=== PATIENT | female | born 1955 | race Caucasian/White ===

== ENCOUNTER 2016-10-25 02:25 | Inpatient (IN) | payer OTHER ==
[~2016-10-25] VITALS: Ht 172.7 cm; Wt 99.8 kg
[~2016-10-25 02:25] MED LIST: ATORVASTATIN CA20 M1 PO; CHLORTHALIDONE50 M1 PO; ESCITALOPRAM OX20 MG PO; GABAPENTIN300 M2 PO; METOPROLOL SUCC50 M2 PO; [UNRECOGNIZED DRUG - OTHER]
--- NOTE | 2016-10-25 11:26 | Admission Core Measures ---
Admission Meds I reviewed the following Meds: Current Medications Sig/Zuly Start time Last Medication Dose Stop Time Status Admin Acetaminophen 975 MG ONCE 10/25 0000 NR (Tylenol) 10/25 2358 Atorvastatin Calcium 20 MG DAILY 10/26 1000 UNVr (Lipitor) Cefazolin Sodium 2,000 MG ONCE 10/25 NR (Kefzol-Ancef Inj) 10/25 2358 Chlorthalidone 50 MG DAILY 10/26 1000 UNVr (Hygroton) Escitalopram Oxalate 10 MG 10/25 UNVr (Lexapro) Metoprolol Succinate 50 MG .[NIGHTLY] 10/25 1130 UNVr (Toprol XL) Oxycodone HCl 10 MG ONCE 10/25 NR (Roxicodone) 10/25 2358 Ropivacaine 500 ML Q40H ONE 10/25 1115 AC (NAROPIN) 10/27 0454 ON-Q Ball 1 BAG Vancomycin HCl 1,500 MG ONCE ONE 10/25 1045 AC Sodium Chloride 250 ML 10/25 1214 (Normal Saline 0.9%) Acute Coronary Syndrome Inclusion Criteria ACS Diagnosis No Inpatient Core Measures LDL Reminder: If No, please order W/I first 24hr of stay Congestive Heart Failure Inclusion Criteria CHF Diagnosis No Cerebrovascular accident Inclusion Criteria CVA/TIA Diagnosis No Inpatient Core Measures Bedside Swallow Eval Reminder: If BSE failed, place ST order Antithrombotic Reminder: Order Antithrombotic Medication by end of day 2 Antithrombotic Reminder: Document Reason Antithrombotic Not ordered by end of day 2 AFIB/Flutter Reminder: If Present, add to problem list AFIB/Flutter Reminder: Order Anticoag Medication for pts with AFIB/Flutter Atherosclerosis Reminder: If Present, add to problem list LDL Reminder: If No, please order W/I first 24hr of stay PT Order Reminder: If No, please order Venous thromboembolism Inpatient Core Measures VTE Risk Factors: Age > 40, Surgery No [facility] VTE prophylaxis d/t No contraindications No VTE Pharm Prophylaxis d/t No contraindications Inclusion Criteria - Per Current guidelines, there needs to be overlap - treatment for the first 5 days of Warfarin therapy. - Parenteral Anticoagulation (IV or SC) needs to be - given along with Warfarin therapy. VTE Diagnosis No VTE Type NONE VTE Confirmed by (Test) NONE Problem List As ranked by this Provider includes Assessment & Plan 1. S/P total knee replacement HOME MEDS Home Med List Atorvastatin Calcium 20 MG TABLET 1 TAB PO DAILY CHOLESTEROL (Reported) Chlorthalidone 50 MG TABLET 1 TAB PO DAILY HTN (Reported) Escitalopram Oxalate 20 MG TABLET 1 TAB PO NIGHTLY ANXIETY / DEPRESSION ( Reported) Gabapentin 300 MG CAPSULE 1 CAP PO NIGHTLY PAIN (Reported) Metoprolol Succinate 50 MG TAB.ER.24H 1 TAB PO NIGHTLY HTN (Reported)
--- NOTE | 2016-10-25 11:29 | Surg Short-stay <48hrs Dis Sum ---
Visit Information Visit Dates Admission Date: 10/25/16 Discharge Date: 10/27/16 Surgical Short Stay DC Summary Admission Diagnosis: Knee pain Final Diagnosis: s/p R TKR Procedure(s): R TKR - see opertive report Summary/Significant Findings: pt underwent a right total knee replacement on 10/[address] Mcfadden. She tolerated the procedure well and was brought to the PACU in stable condition. Post op she was able to void spontaneously, her pain was controlled with oral medication and she worked with PT. She was cleared for discharge to home with services. Condition at Discharge: good Discharge Disposition: home health services Discharge instructions provided to patient/family: Yes Post discharge follow-up plan: Scheduled appointment in [address] Mcfadden. Call sooner if needed.
--- NOTE | 2016-10-25 11:31 | Patient Discharge Instructions ---
Discharge Instructions General Discharge Information You were seen/treated for: Knee pain You had these procedures: Total knee replacement Watch for these problems: temp>101, increased redness or drainage of wound No bath, but you may shower: Yes Other wound care: Keep incisions clean and dry. May shower, no bathing or soaking. Diet Continue normal diet: Yes Activity Activity Self Limited: Yes Activity Limited to: Weight bear as tolerated Acute Coronary Syndrome Inclusion Criteria At DC or during hospital stay patient has or had the following: ACS DIAGNOSIS No Discharge Core Measures Meds if any: Prescribed or Continued at Discharge Meds if any: NOT Prescribed or Continued at Discharge Congestive Heart Failure Inclusion Criteria At DC or during hospital stay patient has or had the following: CHF DIAGNOSIS No Discharge Core Measures Meds if any: Prescribed or Continued at Discharge Meds if any: NOT Prescribed or Continued at Discharge Cerebrovascular accident Inclusion Criteria At DC or during hospital stay patient has or had the following: CVA/TIA Diagnosis No Discharge Core Measures Meds if any: Prescribed or Continued at Discharge Meds if any: NOT Prescribed or Continued at Discharge Venous thromboembolism Inclusion Criteria VTE Diagnosis No VTE Type NONE VTE Confirmed by (Test) NONE Discharge Core Measures - Per Current guidelines, there needs to be overlap - treatment for the first 5 days of Warfarin therapy. - If discharged on Warfarin prior to 5 days of - overlap therapy, the patient will need to be - assessed for post discharge needs including - *Post discharge parental anticoagulation - *Warfarin and/or parental anticoagulation education - *Follow up date to check INR post discharge At least 5 days overlap therapy as Inpatient No Meds if any: Prescribed or Continued at Discharge Note: Overlap Therapy is Warfarin and Anticoagulant Meds if any: NOT Prescribed or Continued at Discharge
[2016-10-25] MEDS ORDERED: ASPIRIN EC325 M2 PO (12:31)
[2016-10-25] MEDS ORDERED: OMEPRAZOLE20 M2 PO (12:31)
[2016-10-25] MEDS ORDERED: COLACE100 M1 PO (12:31)
[2016-10-25] MEDS ORDERED: DILAUDID4 M1 PO (12:31)
[2016-10-25] MEDS ORDERED: MS CONTIN15 M2 PO (12:31)
[2016-10-25] MEDS ORDERED: MIRALAX17 G1 PO (12:31)
--- NOTE | 2016-10-25 16:56 | PN- Orthopedic ---
Subjective Subjective: The patient was seen this evening postoperatively. She reports that her pain is under adequate control and has no other complaints at the current time. Objective Vital Signs and I&Os Vital signs: Blood pressure 180/70, pulse 65, temperature 97.3, O2 saturation 99 % on 2 L via nasal cannula I's and O's: 2500 ML's in of lactated Ringer's/660 ML's out of urine/EBL less than 150 Physical Exam: Gen.: Alert and in no obvious distress Skin: Warm and dry Cardiac: S1-S2 regular Pulmonary: Bilateral breath sounds were equal and decreased at bases Extremities: Bilateral lower extremities were warm without calf tenderness. Gross motor and sensory were intact. Right knee surgical dressing was clean, dry, and intact. There is an On-Q pain pump in place. Assessment/Plan Assessment/Plan Assessment: 61-year-old female status post right total knee arthroplasty. Postoperatively the patient is progressing as expected and her pain is under adequate control. Plan: Out of bed with physical therapy patient is weightbearing as tolerated Continue current pain regiment Gentle hydration and advance diet as tolerated Follow-up morning laboratory studies GI and DVT prophylaxis beginning tonight with 325 mg of aspirin by mouth twice a day Resume home medications 2 doses of postoperative prophylactic antibiotics Strict I's and O's Core Measures/Miscellaneous Venous Thromboembolism VTE Risk Factors: Age > 40, Surgery VTE Contraindications: No Contraindications VTE Diagnosis: No VTE Type: NONE VTE Confirmed by (Test): NONE Beta Mike Is Beta Mike a Home Med? Yes If Yes, Was This Ordered Today? Yes Antibiotics Is Patient on Antibiotics? Yes If Yes: prophylaxis
[2016-10-25 17:30] VITALS: BP 140/70
--- NOTE | 2016-10-25 18:16 | NUR ---
PT ARRIVED TO FLOOR AT 1700 FROM PACU A/O X 3, ON 2L NC, VSS, DENIES PAIN OR DISCOMFORT. DRESSING TO RIGHT KNEE CD+I, +CMS, ICE PACK IN PLACE. ALPS APPLIED. SKIN INTACT. LUNGS CLEAR. +BS X 4. DENIES NAUSEA. TAKING IN WATER AND ICE CHIPS/ DINNER ORDER PLACED. ORIENTED TO ROOM AND CALL ROWELL USE. YBARRA DRAINING CLEAR YELLOW URINE. ONQ PUMP TO RIGHT KNEE INTACT. IVF INFUSING. WILL MONITOR
[2016-10-25 19:27] VITALS: BP 130/70
--- NOTE | 2016-10-25 19:30 | Operative Report ---
Operative/Inv Procedure Report Surgery Date: 10/25/16 Name of Procedure: 1. Right total knee replacement 2. Left knee cortisone injection Pre-Operative Diagnosis: Bilateral primary knee DJD Post-Operative Diagnosis: Same Estimated Blood Loss: 50ml to 100ml Surgeon/Certified Phlebotomy Technician: CATERINA VILLEGAS,SHANI Fernandez Anesthesia: block Operative/Procedure Note Note: Description of Procedure: The patient was taken to the operating room and positively identified. After induction of spinal anesthesia and administration of appropriate pre-operative antibiotics, the patient was positioned supine on the operating room table and all bony prominences were well padded. The left knee was prepped sterilely and injected with a mixture of 2 mL of Depo- Medrol and 8 mL of half percent Marcaine. A Band-Aid was placed over the injection site. A well-padded pneumatic tourniquet was placed on the right upper thigh. After performing a surgical timeout, the right lower extremity was prepped and draped in the usual sterile fashion. After exsanguination with Esmarch the tourniquet was inflated to 250mm of mercury. A standard medial parapatellar approach was made to the knee. This was carried down through skin and subcutaneous tissue to the level of the fascia. Meticulous hemostasis was maintained with Bovie electrocautery. The extensor mechanism and patellar retinaculum were opened sharply and the patella was everted. The infrapatellar fat was resected in order to improve exposure. Osteophytes were trimmed from the patella and femoral condyles and the patella was re-everted and tucked laterally. A medial release was performed and the cruciate ligaments were resected. The tibia was then subluxed anteriorly. Utilizing the appropriate extra-medullary guide, the proximal tibia was trimmed perpendicular to the long axis of the tibial shaft. Attention was then turned to the femur. After opening the medullary canal, the distal femoral cut was made in 6 degrees of valgus utilizing the appropriate intra-medullary guide. The extension gap was checked and found to be appropriate. The femur was then sized and the remainder of the femoral cuts were made with a size 4 4-in-1 femoral cutting guide. The flexion gap was checked and found to be symmetric and appropriate. The knee was then trialed with a size 4 femoral component, a size 4 tibial component and a size 11 mm polyethylene insert. The patella was trimmed to accept an A 35 patella. This yielded excellent range of motion, stability and patellar tracking. All trial components were removed and the knee was copiously irrigated with sterile saline. All components were cemented into place with Zwingle Simplex cement. All the components were of the Alicia Triathlon knee system of the above stated sizes. The knee was again irrigated after cementation. The extensor mechanism and patellar retinaculum were repaired using interrupted #1 vicryl suture. The skin was re-approximated with 2-0 vicryl and closed with bethanie. A sterile dressing was applied, the tourniquet was deflated, the patient was awakened and taken to the recovery room in satisfactory condition.
[2016-10-25 21:45] VITALS: BP 130/60
[2016-10-26 00:13] VITALS: BP 116/60
[2016-10-26 04:14] VITALS: BP 120/76
--- NOTE | 2016-10-26 07:59 | PN- Orthopedic ---
Subjective Subjective: Doing well, states pain is well controlled with dilaudid. Denies c/p, sob, difficulty breathing. Denies nausea and vomitting. Is ambulating with PT this am Objective Vital Signs and I&Os Vital Signs Date Time Temp Pulse Resp B/P B/P Pulse O2 O2 Flow FiO2 Mean Ox Delivery Rate 10/26 0414 98.1 53 20 120/76 97 Nasal 1.0L Cannula 10/26 0013 98.0 57 20 116/60 96 Nasal 1.0L Cannula 10/26 0000 96 Nasal 1.0L Cannula 10/25 2145 98.9 63 20 130/60 96 Nasal 1.0L Cannula 10/25 2106 132/70 10/25 1927 98.1 57 20 130/70 96 Nasal 2.0L Cannula 10/25 1730 95.4 61 12 140/70 96 Nasal 2.0L Cannula 10/25 1600 Nasal 2.0L Cannula Intake & Output 10/26 0800 10/26 0000 10/25 1600 10/25 0800 10/25 0000 10/24 1600 Intake Total 800 600 Output Total 1000 900 Balance -200 -300 Intake, IV 600 600 Intake, Oral 200 Number 0 Bowel Movements Output, Urine 1000 900 Patient 220 lb Weight Physical Exam: General: AAO x3, no acute distress Cardiac: RRR, s1s2 Pulm: CTA bilaterally Abd: Non-tender, non-distended Extremties: Moves all extremties, distal sensation intact. Skin warm and well perfused. DP pulses palpable. Calves soft and non-tender bilaterally Surgical site: D ressing dry and intact, onQ in place Assessment/Plan Assessment/Plan This is a 61 year old female, POD 1, s/p TKR -Continue current pain regimen -DC iv fluids -OOB, wbat -F/U am labs -ASA bid for dvt ppx Core Measures/Miscellaneous Venous Thromboembolism VTE Risk Factors: Age > 40, Surgery VTE Contraindications: No Contraindications VTE Diagnosis: No VTE Type: NONE VTE Confirmed by (Test): NONE Beta Mike Is Beta Mike a Home Med? Yes If Yes, Was This Ordered Today? Yes Antibiotics Is Patient on Antibiotics? Yes If Yes: prophylaxis
[2016-10-26 09:09] LABS: ABSOLUTE BASOPHIL COUNT 0 /CUMM (0.0-0.2); ABSOLUTE EOSINOPHIL COUNT 0 /CUMM (0.0-0.7); ABSOLUTE GRANULOCYTE CT 13.5 /CUMM (1.4-6.5); ABSOLUTE LYMPH COUNT 0.5 /CUMM (1.2-3.4); ABSOLUTE MONOCYTE COUNT 0.4 /CUMM (0.10-0.60); BASOPHIL % 0 % (0.0-2.0); EOSINOPHIL % 0 % (0-5); GRANULOCYTE % 93.3 % (42.2-75.2); HEMATOCRIT 28.1 % (37-47); MEAN CORPUSCULAR HGB 29.9 PG (27.0-31.0); MEAN CORPUSCULAR HGB CONC 34.2 G/DL (33.0-37.0); MEAN CORPUSCULAR VOLUME 87.4 FL (81.0-99.0); MEAN PLATELET VOLUME 8.9 FL (7.4-10.4); PLATELET COUNT 183 /CUMM (130-400); RBC DISTRIBUTION WIDTH 13.2 % (11.5-14.5); RED BLOOD CELL CT 3.21 /CUMM (4.20-5.40); WHITE BLOOD CELL COUNT 14.4 /CUMM (4.8-10.8)
[2016-10-26 14:29] VITALS: BP 118/52
[2016-10-26 22:23] VITALS: BP 130/70
[2016-10-27 06:30] VITALS: BP 118/70
--- NOTE | 2016-10-27 07:10 | PN- Orthopedic ---
Subjective Subjective: POD#2 S/P RIGHT TKA NO MAJOR COMPLAINTS THIS AM DENIES CP, SOB, NO N+V WITH DIET DOING WELL WITH PT Objective Vital Signs and I&Os Vital Signs Date Time Temp Pulse Resp B/P B/P Pulse O2 O2 Flow FiO2 Mean Ox Delivery Rate 10/26 2222 98.1 58 20 130/70 20 10/26 2100 72 130/82 10/26 1429 98.3 62 20 118/52 96 Intake & Output 10/27 0810/27 0000 10/26 1600 10/26 0810/26 0000 10/25 1600 Intake Total 850 800 600 Output Total 427 131 0670 900 Balance -300 450 -200 -300 Intake, IV 600 600 Intake, Oral 850 200 Number 0 Bowel Movements Output, Urine 151 463 3415 900 Patient 220 lb Weight Physical Exam: CV: RRR LUNGS: CLEAR ABD: SOFT, +BS EXT: DRSG CHANGED, WOUND C/D/I NO CALF TENDERNESS BIALT DISTAL CMS INTACT Assessment/Plan Assessment/Plan ORTHO STABLE PAIN WELL CONTROLLED SAFE WITH PT PLAN OK FOR HOME D/C THIS AM F/U DR DIGGS [id number] Core Measures/Miscellaneous Venous Thromboembolism VTE Risk Factors: Age > 40, Surgery VTE Contraindications: No Contraindications VTE Diagnosis: No VTE Type: NONE VTE Confirmed by (Test): NONE Beta Mike Is Beta Mike a Home Med? Yes If Yes, Was This Ordered Today? Yes Antibiotics Is Patient on Antibiotics? Yes If Yes: prophylaxis
== END 2016-10-27 13:53 | disposition home health service (06) | DRG 470 ==
LOC: SDA 02:25 → ENRESERV 15:26 → 2NA 16:55 → ENPENDDIS 10-27 07:33 → 2NA 10-27 13:53
PROVIDERS: Physician Assistant Surgical; ADMIT Orthopaedic Surgery
PROC: 3E0U3BZ Introduction of Anesthetic Agent into Joints, Percutaneous Approach (ICD-10-PCS; principal; 2016-10-25)
PROC: 3E0U33Z Introduction of Anti-inflammatory into Joints, Percutaneous Approach (ICD-10-PCS; principal; 2016-10-25)
PROC: 0SRC0J9 Replacement of Right Knee Joint with Synthetic Substitute, Cemented, Open Approach (ICD-10-PCS; principal; 2016-10-25)
PROC: 3E0T3BZ Introduction of Anesthetic Agent into Peripheral Nerves and Plexi, Percutaneous Approach (ICD-10-PCS; 2016-10-25)
DX: M17.0 Bilateral primary osteoarthritis of knee (principal); Q21.1 Atrial septal defect; M41.9 Scoliosis, unspecified; I10 Essential (primary) hypertension; E78.5 Hyperlipidemia, unspecified; F32.9 Major depressive disorder, single episode, unspecified; K21.9 Gastro-esophageal reflux disease without esophagitis; I34.0 Nonrheumatic mitral (valve) insufficiency
CPT/HCPCS: 2NAP; 82436; 88305; 97110-GO; 97116-GO; 97161-GP; 97530-GO; C1713; J0690; J1030; J1100; J2405; J2795; J3370; J7040; J7042